=== PATIENT | female | born 1975 | race Caucasian/White ===

== ENCOUNTER 2023-08-01 23:50 | Emergency (ER) | payer OTHER, MEDICAID ==
[~2023-08-01] VITALS: Ht 154.9 cm; Wt 86.2 kg
[2023-08-01 23:55] VITALS: BP 135/78; PULSE 92; RESP 16; TEMP 98.1; O2SAT 100
[2023-08-02 00:14] VITALS: BP 135/78; PULSE 92; RESP 16; TEMP 98.1; O2SAT 100
[2023-08-02 00:34] LABS: BASOPHILS # (AUTO) 0.1 K/uL (0.00-0.22); BASOPHILS % (AUTO) 1.1 % (0.0-2.0); EOSINOPHILS # (AUTO) 0.2 K/uL (0-0.4); EOSINOPHILS % (AUTO) 2.2 % (0.0-4.0); HEMATOCRIT 40.1 % (36-48); HEMOGLOBIN 14.3 g/dL (12.0-16.0); LYMPHOCYTES # (AUTO) 4.7 K/uL (2.5-16.5); LYMPHOCYTES % (AUTO) 42.1 % (20.5-51.1); MEAN CORPUSCULAR HEMOGLOBIN 32 pg (27-31); MEAN CORPUSCULAR HGB CONC 36 g/dL (33-37); MEAN CORPUSCULAR VOLUME 88.4 fL (80-94); MONOCYTES # (AUTO) 0.6 K/uL (0.8-1.0); MONOCYTES % (AUTO) 5.6 % (1.7-9.3); NEUTROPHILS # (AUTO) 5.5 K/uL (1.8-7.7); PLATELET COUNT (AUTO) 318 K/uL (140-450); RED BLOOD CELL COUNT(AUTO) 4.53 MIL/uL (4.20-5.40); WHITE BLOOD COUNT (AUTO) 11.2 K/uL (4.8-10.8)
[2023-08-02 00:42] LABS: ANION GAP 10.2 (8-16); CALCIUM 8.3 mg/dL (8.5-10.1); CARBON DIOXIDE 26.9 mmol/L (21-32); CREATININE 0.8 mg/dL (0.6-1.3); POTASSIUM 4.1 mmol/L (3.5-5.1)
== END 2023-08-02 01:31 | disposition home or self-care (01) ==
LOC: MED 23:50
DX: M79.671 Pain in right foot (principal); M79.672 Pain in left foot; R22.43 Localized swelling, mass and lump, lower limb, bilateral; F17.200 Nicotine dependence, unspecified, uncomplicated
CPT/HCPCS: 36415; 80048; 81025; 85025; 93970; 99284; Q0092